=== PATIENT | male | born 1995 | race Two or more races ===

== ENCOUNTER 2025-05-16 20:14 | Emergency (ER) | payer OTHER | END 2025-05-16 21:13 | disposition home or self-care (01) | LOC: FB.ED 20:14 | DX: T78.1XXA Other adverse food reactions, not elsewhere classified, initial encounter (principal); F17.200 Nicotine dependence, unspecified, uncomplicated; Z79.899 Other long term (current) drug therapy | CPT/HCPCS: 99284; A9270; J7512 ==